=== PATIENT | male | born 1980 | race Caucasian/White ===

== ENCOUNTER → 2017-12-07 | Outpatient (CLI) | payer OTHER | LOC: M PAIN 09:15 | DX: M51.26 Other intervertebral disc displacement, lumbar region (principal); M54.17 Radiculopathy, lumbosacral region; G89.29 Other chronic pain; F17.220 Nicotine dependence, chewing tobacco, uncomplicated; Z79.899 Other long term (current) drug therapy; Z88.0 Allergy status to penicillin | CPT/HCPCS: G0463 ==

== ENCOUNTER → 2018-02-22 | Outpatient (CLI) | payer OTHER ==
[~2018-02-22] MED LIST: ISOVUE-M 300 61% 15ML VIAL (Q9967) As Ordered; LIDOCAINE 1% SDV INJ 30 ML VIAL As Ordered; diazePAM 5 MG TAB As Ordered; methylPREDNISolone SUSP 40 MG/ML (DEPO-medrol) VIAL (J1030) As Ordered; oxyCODONE 5MG TAB As Ordered
== END ==
LOC: M PAIN 08:45
DX: G89.29 Other chronic pain (principal); M51.16 Intervertebral disc disorders with radiculopathy, lumbar region; F17.220 Nicotine dependence, chewing tobacco, uncomplicated; Z79.899 Other long term (current) drug therapy; Z88.0 Allergy status to penicillin
CPT/HCPCS: J1030

== ENCOUNTER → 2018-04-07 | Outpatient (CLI) | payer OTHER | LOC: M PAIN 09:00 | DX: M51.26 Other intervertebral disc displacement, lumbar region (principal); M54.17 Radiculopathy, lumbosacral region; F17.220 Nicotine dependence, chewing tobacco, uncomplicated; Z79.899 Other long term (current) drug therapy; Z88.0 Allergy status to penicillin | CPT/HCPCS: G0463 ==

== ENCOUNTER → 2018-05-26 | Outpatient (CLI) | payer OTHER | LOC: M PAIN 09:15 | DX: M51.26 Other intervertebral disc displacement, lumbar region (principal); M54.17 Radiculopathy, lumbosacral region; F17.220 Nicotine dependence, chewing tobacco, uncomplicated; Z79.899 Other long term (current) drug therapy; Z88.0 Allergy status to penicillin | CPT/HCPCS: G0463 ==

== ENCOUNTER → 2018-06-25 | Outpatient (CLI) | payer OTHER | LOC: M PAIN 10:00 | DX: M51.16 Intervertebral disc disorders with radiculopathy, lumbar region (principal); F17.220 Nicotine dependence, chewing tobacco, uncomplicated; Z79.899 Other long term (current) drug therapy; Z88.0 Allergy status to penicillin | CPT/HCPCS: G0463 ==

== ENCOUNTER → 2018-07-13 | Outpatient (CLI) | payer OTHER | LOC: M PAIN 15:00 | DX: M51.16 Intervertebral disc disorders with radiculopathy, lumbar region (principal); G89.29 Other chronic pain; F17.220 Nicotine dependence, chewing tobacco, uncomplicated; Z79.899 Other long term (current) drug therapy; Z88.0 Allergy status to penicillin | CPT/HCPCS: G0463 ==

== ENCOUNTER → 2018-08-17 | Outpatient (CLI) | payer OTHER | LOC: M PAIN 15:00 | DX: M51.16 Intervertebral disc disorders with radiculopathy, lumbar region (principal); G89.29 Other chronic pain; G47.30 Sleep apnea, unspecified; F17.220 Nicotine dependence, chewing tobacco, uncomplicated; Z79.899 Other long term (current) drug therapy; Z88.0 Allergy status to penicillin | CPT/HCPCS: G0463 ==

== ENCOUNTER 2018-11-15 05:38 | Day surgery (SDC) | payer OTHER ==
[2018-11-15] VITALS (7 sets, daily range): BP systolic 120–139; BP diastolic 56–83
[~2018-11-15] VITALS: Ht 175.3 cm; Wt 88.5 kg
[~2018-11-15 05:38] MED LIST changes: +APAP325T4 PO; +CELE1CAP9 PO; +GABA-843 PO; -ISOVUE-M 300 61% 15ML VIAL (Q9967) As Ordered; -LIDOCAINE 1% SDV INJ 30 ML VIAL As Ordered; +MULTCAP PO; +VITATAB11 PO; -diazePAM 5 MG TAB As Ordered; -methylPREDNISolone SUSP 40 MG/ML (DEPO-medrol) VIAL (J1030) As Ordered; -oxyCODONE 5MG TAB As Ordered
[2018-11-15] MEDS ORDERED: LIDOCAINE 1% MDV 20ML VIAL SQ PRN (06:00)
[2018-11-15] MEDS ORDERED: BUPIVACAINE/EPIN 0.5% 30 ML VIAL As Ordered ONE (06:46)
[2018-11-15] MEDS ORDERED: BUPIVACAINE HCL 0.25% 30 ML VIAL As Ordered ONE (06:46)
[2018-11-15] MEDS ORDERED: THROMBIN SOLN 20,000 UNITS KIT As Ordered ONE (06:46)
[2018-11-15] MEDS ORDERED: TRANEXAMIC ACID 100 MG/ML 10ML VIAL As Ordered ONE (06:46)
[2018-11-15] MEDS ORDERED: EPINEPHrine INJ 1 MG/ML 1ML AMP As Ordered ONE ×2 (06:47→10:17)
[2018-11-15] MEDS ORDERED: BUPIVACAINE LIPOSOME/PF 1.3% 20ML VIAL (13.3MG/ML)(EXPAREL)(C9290 PER1MG) As Ordered ONE (06:47)
[2018-11-15] MEDS ORDERED: BACITRACIN PWD 50,000 UNITS VIAL As Ordered ONE (06:47)
[2018-11-15] MEDS ORDERED: GABAPENTIN 100 MG CAP PO ONE (07:00)
[2018-11-15] MEDS ORDERED: PERCOCET 5MG/325MG TAB PO ONE (07:00)
[2018-11-15] MEDS ORDERED: CelecoXIB 400 MG CAP PO ONE (07:00)
[2018-11-15] MEDS ORDERED: VANCOMYCIN HCL 1,000 MG, VIAL MATE ADAPTER 1 EACH in D5W 250 ML IV ONE (07:00)
[2018-11-15] MEDS ORDERED: LR 1,000 ML IV ONE (07:00)
[2018-11-15] MEDS ORDERED: MIDAZOLAM INJ 2 MG/2 ML VIAL (J2250) As Ordered ONE (08:11)
[2018-11-15] MEDS ORDERED: dexameTHASONE 4 MG/ML 1ML VIAL (J1100) As Ordered ONE (08:11)
[2018-11-15] MEDS ORDERED: ONDANSETRON 4MG/2ML VIAL (J2405) As Ordered ONE (08:11)
[2018-11-15] MEDS ORDERED: fentaNYL 250 MCG/5 ML INJECTION (J3010) As Ordered ONE (08:11)
[2018-11-15] MEDS ORDERED: ROCURONIUM BROMIDE 50 MG/5 ML VIAL As Ordered ONE (08:11)
[2018-11-15] MEDS ORDERED: PROPOFOL 200 MG/20 ML VIAL As Ordered ONE (08:11)
[2018-11-15] MEDS ORDERED: LIDOCAINE 2% INJ 100 MG/5 ML SDV (FOR ANES.) As Ordered ONE (08:11)
[2018-11-15] MEDS ORDERED: ePHEDrine SULFATE 25 MG/5 ML(5MG/ML) SYRINGE As Ordered ONE (08:21)
[2018-11-15] MEDS ORDERED: SUGAMMADEX SODIUM 500 MG/5 ML VIAL (BRIDION) As Ordered ONE (08:21)
[2018-11-15] MEDS ORDERED: METAMUCIL (PSYLLIUM) PACKET PO ONE ×2 (10:00→11:00)
[2018-11-15] MEDS ORDERED: LR 1,000 ML IV SCH ×2 (10:15→10:30)
[2018-11-15] MEDS ORDERED: HYDROMORPHONE HCL 0.5 MG/ 0.5 ML SYRINGE (J1170 PER 1) IV PRN (10:15)
[2018-11-15] MEDS ORDERED: PERCOCET 5MG/325MG TAB PO PRN (10:15)
[2018-11-15] MEDS ORDERED: ONDANSETRON 4MG/2ML VIAL (J2405) IV PRN (10:30)
[2018-11-15] MEDS: PERCOCET 5MG/325MG TAB PO PRN ×3 (10:35→19:30)
[2018-11-15] MEDS: fentaNYL 100 MCG/2 ML INJECTION (J3010) IV PRN ×4 (10:35→10:50)
[2018-11-15] MEDS: MORPHINE 10 MG/ML 1ML VIAL (J2270) IV PRN ×5 (10:50→11:10)
[2018-11-15] MEDS ORDERED: MORPHINE 10 MG/ML 1ML VIAL (J2270) As Ordered ONE (11:24)
[2018-11-15] MEDS: MORPHINE 4 MG/ML 1ML VIAL/SYRINGE (J2270) IV PRN ×5 (11:25→11:50)
[2018-11-15] MEDS ORDERED: VANCOMYCIN HCL 500 MG in D5W MINI-BAG PLUS 100 ML IV ONE (11:45)
[2018-11-15] MEDS: CYCLOBENZAPRINE 10 MG TAB PO PRN ×2 (12:20→18:41)
--- NOTE | 2018-11-15 14:49 | RO ---
DATE OF PROCEDURE: 11/15/2018 PREOPERATIVE DIAGNOSIS: Left L5-S1 radiculopathy secondary to left-sided disk bulge at L5-S1. POSTOPERATIVE DIAGNOSIS: Left L5-S1 radiculopathy secondary to left-sided disk bulge at L5-S1. PROCEDURE PERFORMED: microdiskectomy / laminotomy L5-S1, left side for decompression of thecal sac and traversing S1 nerve root. SURGEON: Dr. Mayen TEXT TRANSCRIBER: Ron Her, physician assistant professor of physics. ESTIMATED BLOOD LOSS: Less than 30 mL replaced crystalloid. COMPLICATIONS: No complications. INDICATIONS: Left lower extremity radiculopathy going on for months, incomplete relief of epidural injections. Patient has elected for operative intervention. Consent reviewed in detail including a franck discussion of the pathology involved, the procedure proposed, alternatives including doing nothing and risks including but not limited to pain, failure, need for more surgery, infection, nerve injury and other issues. The patient agrees to proceed. OPERATIVE COURSE: Identified in the holding area. Site side verified brought to the operating room positioned on the Mina frame for exposure of the low back for microdiskectomy in the prone position. Next, once he was positioned he was sterilely prepped, draped in the usual fashion. Next, incision outlined with a marking pen infiltrated with 0.25% Marcaine with epinephrine. Next, I stood on the patient's left Mr. Her on the right initially utilizing 3.5 loupe magnification. I made the incision with a 10 blade knife and developed this through subcuticular tissues to the posterior lumbar fascia. Palpated the spinous process of L5 and dissected down the spinous process of L5 by opening the posterior lumbar fascia longitudinally. Next, once the L5 lamina was exposed I probed the divot in the lamina placed a Teofilo Tavares probe in the divot and we obtained a cross-table lateral x-ray to verify level. I continued exposing the 5-1 level and then at this point my loupe magnification removed and the operating microscope was brought in. Mr. Her utilized oculars on the right side of the scope and I on the left side of the scope. Retractors were placed. Next, high-speed bur was then utilized to implement the left unilateral laminotomy at L5 extending superiorly toward the bare area of five inferiorly to the bare area of S1 and protecting the facet complex laterally. Next, I utilized curved curette while Mr. Her utilized suction levels. Next the curved curette was utilized to elevate the ligamentum flavum and IV then utilized #2 and #3 Kerrison's to remove ligamentum flavum exposing the thecal sac. Next, Mr. Her continued to use the suction levels consistent for exposure. I utilized the Red Jimmy to help clear the annulus. The annulus was identified. The annulus was bulging posteriorly. I opened the posterior ligament and annulus complex and I did retrievable friable disc material using Stinson and regular pituitaries. Next, once this disk material had been removed, we irrigated thrombin Gelfoam was utilized for hemostasis and removed. Bipolar cautery was utilized for hemostasis. Next, Exparel local anesthetic solution was injected in the subcuticular tissues and fascial tissues for postoperative pain control to reduce narcotics. Next, no active bleeding was appreciated no CSF leak was appreciated. Mr. Her removed the retractors and we closed the posterior lumbar fascia with interrupted Vicryl interrupted subcuticular stitch. The dermis and pernio dressing was applied by Mr. Her on the skin. Irrigation had been accomplished at the conclusion of the case as well, including irrigation with concentrated bacitracin. Next, the patient was moved to the hospital bed in the supine position, extubated, moved to recovery room in good condition . For further details please refer to medical record.
--- NOTE | 2018-11-15 15:17 | REP ---
Clinical: Intraoperative positioning. Technique: Portable cross-table lateral view. Findings: Probe identified via posterior approach at the L5-S1 level. Electronically Signed by Danish Azar MD 11/15/2018 03:09 P
[2018-11-15] MEDS: GABAPENTIN 300 MG CAP PO SCH (21:48)
[2018-11-16] MEDS: CYCLOBENZAPRINE 10 MG TAB PO PRN ×2 (01:12→07:09)
[2018-11-16] MEDS: PERCOCET 5MG/325MG TAB PO PRN ×3 (01:12→09:53)
[2018-11-16 06:00] VITALS: BP 132/73
[2018-11-16] MEDS: GABAPENTIN 300 MG CAP PO SCH (08:25)
== END 2018-11-16 10:30 | disposition home or self-care (01) ==
LOC: M SDC 05:38 → M MS5PR 12:30 → M SDC 11-16 10:30
PROVIDERS: ATTEND Orthopaedic Surgery
DX: M51.16 Intervertebral disc disorders with radiculopathy, lumbar region (principal); M75.101 Unspecified rotator cuff tear or rupture of right shoulder, not specified as traumatic; M75.102 Unspecified rotator cuff tear or rupture of left shoulder, not specified as traumatic; R06.83 Snoring; G47.33 Obstructive sleep apnea (adult) (pediatric); Z88.0 Allergy status to penicillin; Z72.0 Tobacco use
CPT/HCPCS: 36415; 63030; 72110; 86850; 86900; 86901; 88304; 96374; 96375; 96376; C9290; J1100; J1170; J2250; J2270; J2405; J3010; J3370

== ENCOUNTER → 2019-02-09 | Outpatient (CLI) | payer OTHER ==
--- NOTE | 2019-02-10 09:07 | REP ---
MR CERVICAL SPINE WITHOUT CONTRAST: HISTORY: Finger pain. A disc bulge is present at the C3-4 level. There is minimal effacement of the thecal sac without spinal cord compression. The C3 neural foramina are patent. A disc bulge and small central disc protrusion are present at the C4-5 level. There is mild effacement of the thecal sac without spinal cord compression. The C4 neural foramina are patent. A disc bulge is present at the C5-6 level. There is moderate effacement of the thecal sac without spinal cord compression. The C5 neural foramina are patent. A disc bulge is present at the C6-7 level. There is minimal effacement of the thecal sac without spinal cord compression. The C6 neural foramina are patent. There is no other disc bulge or herniation. The remaining neural foramina are patent. The spinal cord is normal in signal intensity. Normal signal intensity is present in the cervical vertebral bodies. IMPRESSION: There is cervical spondylosis at the C3-4 through C6-7 levels without spinal cord compression. Electronically Signed by Isac Allred MD 02/10/2019 09:13 A
== END ==
LOC: M RAD 16:50
PROVIDERS: ATTEND Physician Assistant
DX: M47.812 Spondylosis without myelopathy or radiculopathy, cervical region (principal); M50.21 Other cervical disc displacement, high cervical region; M50.221 Other cervical disc displacement at C4-C5 level; M50.222 Other cervical disc displacement at C5-C6 level; M50.223 Other cervical disc displacement at C6-C7 level